=== PATIENT | male | born 1960 ===

== ENCOUNTER → 2023-02-07 | Day surgery (SDC) | payer OTHER ==
[~2023-02-07] VITALS: Ht 172.7 cm; Wt 77.1 kg
[~2023-02-07] MED LIST: OXYC1TAB9 PO; TAMS0.4C PO
== END | disposition home or self-care (01) ==
LOC: ADM 02-05 12:30 → CIR.AMB 07:23
PROVIDERS: ATTEND Surgery
DX: K60.1 Chronic anal fissure (principal); K62.89 Other specified diseases of anus and rectum; K64.8 Other hemorrhoids; K59.09 Other constipation

== ENCOUNTER 2023-06-27 05:00 | Day surgery (SDC) | payer OTHER ==
[~2023-06-27] VITALS: Ht 172.7 cm; Wt 74.8 kg
[2023-06-27] MEDS ORDERED: OXYC1TAB9 PO (08:13)
== END 2023-06-27 13:00 | disposition home or self-care (01) ==
LOC: CIR.AMB 05:00
PROVIDERS: ATTEND Surgery
DX: K60.3 Anal fistula (principal); Z91.041 Radiographic dye allergy status; Z20.822 Contact with and (suspected) exposure to COVID-19